=== PATIENT | female | born 1955 | race Caucasian/White ===

== ENCOUNTER → 2021-12-07 | Outpatient (CLI) | payer BC ==
--- NOTE | 2021-12-07 13:26 | Diagnostic Imaging Report ---
INDICATION: Right knee pain. TIME OF EXAM: 12:44 PM. TECHNIQUE: Multiple views of the right knee were obtained. FINDINGS: Alignment is normal. There is some mild medial compartmental joint space narrowing. There is some spurring of the tibial spines. Mild patellofemoral degenerative changes are noted. No fracture, dislocation, or effusion is detected. IMPRESSION: Mild degenerative changes. No acute bony abnormality is detected. Dictated by: Dictated on workstation # [id number]
== END ==
LOC: ORTHO 12:23
PROVIDERS: ATTEND Orthopaedic Surgery
DX: M17.11 Unilateral primary osteoarthritis, right knee (principal)
CPT/HCPCS: 73564; G0463; 99213

== ENCOUNTER → 2022-08-03 | Outpatient (CLI) | payer BC | LOC: ORTHO 11:30 | PROVIDERS: ATTEND Orthopaedic Surgery | DX: M17.11 Unilateral primary osteoarthritis, right knee (principal) | CPT/HCPCS: 20610 ==

== ENCOUNTER → 2022-11-01 | Outpatient (CLI) | payer BC | LOC: ORTHO 09:30 | PROVIDERS: ATTEND Orthopaedic Surgery | DX: M17.11 Unilateral primary osteoarthritis, right knee (principal) | CPT/HCPCS: 20610 ==

== ENCOUNTER → 2023-02-14 | Outpatient (CLI) | payer BC | LOC: ORTHO 09:27 | PROVIDERS: ATTEND Orthopaedic Surgery | DX: M17.11 Unilateral primary osteoarthritis, right knee (principal) | CPT/HCPCS: 20610 ==

== ENCOUNTER → 2023-03-21 | Outpatient (CLI) | payer MEDICARE, BC | LOC: ORTHO 13:16 | PROVIDERS: ATTEND Orthopaedic Surgery | DX: M17.11 Unilateral primary osteoarthritis, right knee (principal) | CPT/HCPCS: 99213 ==

== ENCOUNTER → 2023-04-05 | Outpatient (CLI) | payer MEDICARE, BC | LOC: ORTHO 09:17 | PROVIDERS: ATTEND Orthopaedic Surgery | DX: M17.11 Unilateral primary osteoarthritis, right knee (principal) | CPT/HCPCS: 20610 ==

== ENCOUNTER → 2023-06-06 | Outpatient (CLI) | payer MEDICARE, BC | LOC: ORTHO 10:12 | PROVIDERS: ATTEND Orthopaedic Surgery | DX: S83.241A Other tear of medial meniscus, current injury, right knee, initial encounter (principal); X58.XXXA Exposure to other specified factors, initial encounter | CPT/HCPCS: 99213 ==

== ENCOUNTER → 2023-07-06 | Outpatient (CLI) | payer MEDICARE, BC ==
--- NOTE | 2023-07-06 14:39 | Diagnostic Imaging Report ---
HISTORY: Right knee pain. TECHNIQUE: 4 views of the right knee. COMPARISON: 12/07/2021 FINDINGS: There are moderate degenerative changes in the medial compartment of the right knee and mild degenerative changes in the patellofemoral compartment. There is a moderate right knee joint effusion. Alignment appears normal. No acute fracture is seen. IMPRESSION: 1. Degenerative changes about the right knee with a moderate joint effusion. Dictated by: Dictated on workstation # [id number]
== END ==
LOC: ORTHO 09:33
PROVIDERS: ATTEND Orthopaedic Surgery
DX: M17.11 Unilateral primary osteoarthritis, right knee (principal)
CPT/HCPCS: 73564; G0463; 99213